=== PATIENT | female | born 1970 | race Caucasian/White ===

== ENCOUNTER 2019-07-22 09:54 | Emergency (ER) | payer BC, OTHER ==
[2019-07-22] MEDS ORDERED: Ketorolac 10 MG Tab ONE ×2 (10:05→11:06)
[2019-07-22] MEDS ORDERED: Cyclobenzaprine 10 MG Tab ONE (10:05)
[2019-07-22] MEDS ORDERED: Ketorolac 60 MG/2 ML SDV IM ONE (10:06)
[2019-07-22] MEDS ORDERED: Methocarbamol 500 MG Tab PO ONE (10:06)
--- NOTE | 2019-07-22 10:19 | EDM.PDOC ---
ED HPI GENERAL MEDICAL PROBLEM - General Time Seen by Provider: 07/22/19 10:00 Source of Information: Reports: Patient History Limitations: Reports: No Limitations - History of Present Illness INITIAL COMMENTS - FREE TEXT/NARRATIVE: According to patient she has been volunteering at the [employer] and has been staying at [employer] in [facility]. 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 Also she claims the bed she slept was very uncomfortable. When she woke up in the morning she felt severe sudden pain in her right lower back and since has not been able to move. Cannot straighten her back and feels very tight and painful with any movement of the back.Rates her pain at 10/10. No radiation of pain. No weakness , tingling or numbness in her lower extremities. No other complaints Onset: Today Onset Date: 07/22/19 Onset Time: 06:00 Location: Reports: Back Quality: Reports: Ache, Sharp Severity: Severe Improves with: Reports: None Worsens with: Reports: None Associated Symptoms: Denies: Confusion, Chest Pain, Cough, Diaphoresis, Fever/ Chills, Headaches, Nausea/Vomiting, Rash, Seizure, Shortness of Breath, Syncope , Weakness - Related Data Allergies Allergy/AdvReac Type Severity Reaction Status Date / Time No Known Allergies Allergy Verified 07/22/19 10:46 Home Meds: Home Meds Citalopram Hydrobromide [Celexa] 10 mg PO DAILY 07/22/19 [History] ED ROS GENERAL - Review of Systems Review Of Systems: See Below Constitutional: Denies: Fever, Chills HEENT: Denies: Eye Pain, Rhinitis, Throat Pain Respiratory: Denies: Shortness of Breath, Pleuritic Chest Pain, Cough, Sputum Cardiovascular: Denies: Chest Pain, Lightheadedness Endocrine: Denies: Fatigue GI/Abdominal: Denies: Abdominal Pain, Flatus, Melena Musculoskeletal: Reports: Back Pain, Muscle Pain, Muscle Stiffness. Denies: Joint Pain, Joint Swelling Skin: Denies: Bruising, Pruritis, Rash ED EXAM, GENERAL - Physical Exam Exam: See Below Exam Limited By: No Limitations General Appearance: Alert, WD/WN, No Apparent Distress, Moderate Distress Eye Exam: Bilateral Eye: EOMI, PERRL Ears: Normal External Exam, Normal Canal, Hearing Grossly Normal, Normal TMs Ear Exam: Bilateral Ear: Auricle Normal, Canal Normal, TM normal Nose: Normal Inspection, Normal Mucosa, No Blood Throat/Mouth: Normal Inspection, Normal Lips, Normal Teeth, Normal Gums, Normal Oropharynx, Normal Voice, No Airway Compromise Head: Atraumatic, Normocephalic Neck: Normal Inspection, Supple, Non-Tender, Full Range of Motion Respiratory/Chest: No Respiratory Distress, Lungs Clear, Normal Breath Sounds, No Accessory Muscle Use, Chest Non-Tender Cardiovascular: Normal Peripheral Pulses, Regular Rate, Rhythm, No Edema, No Gallop, No JVD, No Murmur, No Rub Back Exam: Decreased Range of Motion, Muscle Spasm, Paraspinal Tenderness ( tender over the right lumbar and Si region. There is muscle spasm in the same area.) Extremities: Normal Inspection, Normal Range of Motion, Non-Tender, Normal Capillary Refill, No Pedal Edema Course - Vital Signs Text/Narrative:: Pt appears like she has acute low back muscle spasms. She rates her pain at 10/ 10. She did receive toradol 60mg Im and also Robaxin 1500 mg in the emergency room. I did get Lumbar spine X-ray to make sure she does not have any underlying pathology. Patient's Lumbar spine is negative for fracture or subluxation.Pt reassured. Advised to alternate heat and cold every 2-3 hrs for next 24 hrs . Followed by heat every 2-3 hrs after 24 hrs. Avoid sudden bending, squatting, stooping activities of the lower back. Rest. Continue to do routine activities around the house. Avoid lifting heavy weights. I have started her on toradol 10mg 3 times daily , to alternate with Tylenol 650mg every 4 hrs.and Robaxin 100mg 3 times daily for muscles spams. Medications can make her tired. Avoid driving on medications.Pain should gradually improve. Last Recorded V/S: Last Vital Signs Temp 97.8 F 07/22/19 10:18 Pulse 69 07/22/19 10:18 Resp 20 07/22/19 10:18 BP 123/86 07/22/19 10:18 Pulse Ox 93 L 07/22/19 10:18 - Orders/Labs/Meds Orders: Active Orders 24 hr Category Date Time Status Lumbar Spine 2 or 3V [CR] Stat Exams 07/22/19 10:07 Ordered Meds: Medications Discontinued Medications Generic Name Dose Route Start Last Admin Trade Name Thien PRN Reason Stop Dose Admin Ketorolac Tromethamine 60 mg 07/22/19 10:06 07/22/19 10:10 Toradol IM 07/22/19 10:07 60 mg ONETIME ONE Administration Methocarbamol 1,500 mg 07/22/19 10:06 07/22/19 10:16 Robaxin PO 07/22/19 10:07 1,500 mg ONETIME ONE Administration Departure - Departure Time of Disposition: 11:00 Disposition: Home, Self-Care 01 Condition: Fair Clinical Impression: Spasm of muscle of lower back - Discharge Information *PRESCRIPTION DRUG MONITORING PROGRAM REVIEWED*: Not Applicable *COPY OF PRESCRIPTION DRUG MONITORING REPORT IN PATIENT LINNEA: Not Applicable Instructions: Muscle Cramps and Spasms, [id number] Additional Instructions: Pt appears like she has acute low back muscle spasms. She rates her pain at 10/ 10. She did receive toradol 60mg Im and also Robaxin 1500 mg in the emergency room. I did get Lumbar spine X-ray to make sure she does not have any underlying pathology. Patient's Lumbar spine is negative for fracture or subluxation.Pt reassured. Advised to alternate heat and cold every 2-3 hrs for next 24 hrs . Followed by heat every 2-3 hrs after 24 hrs. Avoid sudden bending, squatting, stooping activities of the lower back. Rest. Continue to do routine activities around the house. Avoid lifting heavy weights. I have started her on toradol 10mg 3 times daily , to alternate with Tylenol 650mg every 4 hrs.and Robaxin 100mg 3 times daily for muscles spams. Medications can make her tired. Avoid driving on medications.Pain should gradually improve. - Problem List & Annotations (1) Spasm of muscle of lower back SNOMED Code(s): 43487903616712624 Code(s): M62.830 - MUSCLE SPASM OF BACK Status: Acute Current Visit: Yes - Problem List Review Problem List Initiated/Reviewed/Updated: Yes - My Orders Last 24 Hours: My Active Orders 07/22/19 10:07 Lumbar Spine 2 or 3V [CR] Stat - Assessment/Plan Last 24 Hours: My Active Orders 07/22/19 10:07 Lumbar Spine 2 or 3V [CR] Stat Assessment:: Acute back muscles spasm Plan: Pt appears like she has acute low back muscle spasms. She rates her pain at 10/ 10. She did receive toradol 60mg Im and also Robaxin 1500 mg in the emergency room. I did get Lumbar spine X-ray to make sure she does not have any underlying pathology. Patient's Lumbar spine is negative for fracture or subluxation.Pt reassured. Advised to alternate heat and cold every 2-3 hrs for next 24 hrs . Followed by heat every 2-3 hrs after 24 hrs. Avoid sudden bending, squatting, stooping activities of the lower back. Rest. Continue to do routine activities around the house. Avoid lifting heavy weights. I have started her on toradol 10mg 3 times daily , to alternate with Tylenol 650mg every 4 hrs.and Robaxin 100mg 3 times daily for muscles spams. Medications can make her tired. Avoid driving on medications.Pain should gradually improve.
[2019-07-22] MEDS ORDERED: HYDROmorphone 2 MG/ML SDV IM ONE (11:14)
[2019-07-22] MEDS ORDERED: HYDROmorphone 2 MG/ML SDV ONE (11:23)
[2019-07-22] MEDS ORDERED: Ondansetron 4 MG/2 ML SDV IM ONE (12:00)
[2019-07-22] MEDS ORDERED: Ondansetron 4 MG/2 ML SDV ONE (12:06)
--- NOTE | 2019-07-23 09:36 | CR ---
Date of Service: 07/22/19 Clinical Data: acute low back pain LUMBAR SPINE: There is diffuse osteopenia. The vertebral bodies are of average height and in good alignment. No acute fracture or dislocation. There is slight narrowing of the L4-5 disk space. There is mild facet joint hypertrophy in the lower lumbar spine. The exam is otherwise negative. [id number] [facility]
== END 2019-07-22 11:45 | disposition home or self-care (01) ==
LOC: EDBD 09:54 → LB.ED 09:54
DX: M62.830 Muscle spasm of back (principal)
CPT/HCPCS: 72100; 96372; 99283; A9270; J1170; J1885; J2405